=== PATIENT | female | born 1980 | race Caucasian/White ===

== ENCOUNTER → 2019-08-04 10:43 | Outpatient (CLI) | payer SELFPAY ==
[2019-08-04 13:35] LABS: Basophils # 0.1 K/mm3 (0-0.2); Basophils % 0.4 % (0.1-2.0); Eosinophils # 0.1 K/mm3 (0.0-0.4); Eosinophils % 0.6 % (0.1-12.0); Hematocrit 46.8 % (37.0-47.0); Hemoglobin 15.2 g/dL (12.2-16.2); Lymphocytes # 1.2 K/mm3 (0.7-4.5); Lymphocytes % 8.3 % (10-50); Mean Corpuscular HGB Conc 32.5 g/dL (31.8-35.4); Mean Corpuscular Hemoglobin 28.8 pg (27.0-31.2); Mean Corpuscular Volume 88.5 fl (81-99); Monocytes % 7.3 % (1.7-9.3); Neutrophils % 83.5 % (37.0-80.0); Platelet Count 237 K/mm3 (142-424); Red Blood Count 5.29 M/mm3 (4.20-5.40); Red Cell Distribution Width 12.8 % (11.5-17.5); White Blood Count 14.4 K/mm3 (4.8-10.8)
[2019-08-04 14:08] LABS: Alanine Aminotransferase 31 U/L (12-78); Albumin Level 3.1 gm/dL (3.4-5.0); Albumin/Globulin Ratio 0.9 (1.1-1.8); Alkaline Phosphatase 86 U/L (46-116); Anion Gap 15.6 mEq/L (5-15); Aspartate Amino Transferase 16 U/L (15-37); Bilirubin,Total 0.6 mg/dL (0.2-1.0); Blood Urea Nitrogen 9 mg/dL (7-18); Calcium 9.1 mg/dL (8.5-10.1); Carbon Dioxide 28 mmol/L (21.0-32.0); Chloride 98 mmol/L (98-107); Creatinine,Serum 0.83 mg/dL (0.55-1.02); Estimated Glomerular Filt Rate 76 ml/min (>60); GFR (African American) 92 ML/MIN (>60); Globulin 3.6 gm/dl (1.3-3.2); Glucose 97 mg/dL (74-106); Potassium 4.6 mmoL/L (3.5-5.1); Sodium 137 mmol/L (136-145); Total Protein,Serum 6.7 gm/dL (6.4-8.2)
== END ==
PROVIDERS: PCP Nurse Practitioner Family; Visit Provider Nurse Practitioner Family
DX: M54.41 Lumbago with sciatica, right side (principal); E86.0 Dehydration
CPT/HCPCS: 80053; 85025

== ENCOUNTER 2019-08-07 10:14 | Inpatient (IN) ==
[2019-08-07 12:46] LABS: Basophils % 0.1 % (0.1-2.0); Eosinophils % 0.1 % (0.1-12.0); Hematocrit 44.4 % (37.0-47.0); Hemoglobin 14.1 g/dL (12.2-16.2); Lymphocytes # 0.8 K/mm3 (0.7-4.5); Lymphocytes % 7.8 % (10-50); Mean Corpuscular HGB Conc 31.8 g/dL (31.8-35.4); Mean Corpuscular Volume 90.2 fl (81-99); Mean Platelet Volume 7.7 fl (7.4-10.4); Monocytes # 0.3 K/mm3 (0.1-1.0); Monocytes % 2.8 % (1.7-9.3); Neutrophils # 9.2 K/mm3 (1.8-7.8); Neutrophils % 89.2 % (37.0-80.0); Platelet Count 286 K/mm3 (142-424); Red Blood Count 4.92 M/mm3 (4.20-5.40); Red Cell Distribution Width 12.9 % (11.5-17.5); White Blood Count 10.3 K/mm3 (4.8-10.8)
--- NOTE | 2019-08-07 12:48 | Consult Report ---
*Admission Date: 08/07/19 *Reason for consult:: Perianal abscess *History of present illness: Patient is a 39-year-old female who had developed some perianal pain about 10 days ago. She was seen in her primary care provider's office and there was concern that this may be thrombosed hemorrhoid. She had presented back today for follow-up and was noted to have findings of perianal versus perirectal abscess which had developed some spontaneous drainage. This was quite impressive and she was admitted for inpatient management for pain control, surgical intervention, and intravenous antibiotics. Review of Systems - Review of Systems Review of systems:: pertinent systems reviewed and negative unless documented below [facility] History I have reviewed the patient's past medical history: Yes *Have you ever received a pneumonia vaccine?: No *Have you received a flu vaccine this season?: No Other Surgeries: Yes: Dilation and Curettage, Hysterectomy-Partial - *Social History Alcohol Intake: never *Occupational Status:: other *Travel in the last 8 weeks: None Family Hx:: No significant family history Meds Home Medications Medication Instructions Recorded Confirmed Type Oxycodone HCl/Acetaminophen 1 each PO Q6HP PRN 08/07/19 08/07/19 History [Endocet 5-325 Tablet] predniSONE [Prednisone 20mg 20 mg PO DAILY 08/07/19 08/07/19 History Tab] Allergies Allergy/AdvReac Type Severity Reaction Status Date / Time No Known Allergies Allergy Verified 08/07/19 12:30 Exam Vital signs and Labs for Last 24 Hours: Temp Pulse Resp BP Pulse Ox 98.6 F 78 18 130/89 97 08/07/19 11:25 08/07/19 11:25 08/07/19 11:25 08/07/19 11:25 08/07/19 11:25 I & O for Last 24 hours: Intake & Output 08/05/19 08/06/19 08/07/19 08/08/19 11:59 11:59 11:59 11:59 Weight 169 lb 9 oz - *Routine HEENT Exam Head: Present: normocephalic Eye: Present: EOMI, PERRL ENT: Present: mucous membranes moist - *Routine Neck Exam Present: supple. Absent: lymphadenopathy - *Routine Respiratory Exam Present: CTA bilaterally - *Routine Cardiovascular Exam Present: RRR - *Routine Abdominal Exam Present: soft, normoactive bowel sounds. Absent: tenderness - *Routine Rectal Exam Comments: In the left lateral perianal location there is an area of fluctuance with minimal induration. This is markedly tender. There is copious amount of thick pus exuding from the wound. It is quite tender. - *Routine Extremities Exam Absent: cyanosis, clubbing, edema - *Routine Skin Exam Present: warm. Absent: rash - *Routine Neurological Exam Present: alert, oriented X3 - Detailed Eye Exam Eyelids: Left normal inspection Assessment and Plan - Assessment and plan all Dx Assessment and Plan for all problems:: This appears to be likely a perianal versus perirectal abscess which has partially spontaneously drained. I do feel that to aid in patient's quickest recovery that more thorough incision and drainage with evacuation of abscess cavity and exam under anesthesia to assess for perirectal abscess would be warranted. Arrangements will be made for this to be done this afternoon.
[2019-08-07 12:53] LABS: INR 0.99 (0.9-1.1); Prothrombin Time 10.3 seconds (9.4-11.8)
[2019-08-07 13:22] LABS: Albumin Level 2.7 gm/dL (3.4-5.0); Albumin/Globulin Ratio 0.7 (1.1-1.8); Bilirubin,Total 0.2 mg/dL (0.2-1.0); Calcium 8.5 mg/dL (8.5-10.1); Globulin 3.7 gm/dl (1.3-3.2); Total Protein,Serum 6.4 gm/dL (6.4-8.2)
--- NOTE | 2019-08-07 14:19 | History & Physical Report ---
*Admission Date: 08/07/19 *Chief complaint: Abscess at anus *History of present illness: Ms. Gallardo is a 39-year-old [employer] woman who he presented to the office today with continued pain in her perianal region. She states the pain began approximately 7 to 10 days ago and she sought initial care at our office where she was diagnosed with a thrombosed hemorrhoid. Treatment topical steroids provided no benefit and she followed up later in the week with continued pain that radiated into her back and legs. At that time labs were obtained showing a leukocytosis with concern for suspected UTI, antibiotics were prescribed but never initiated. She re-presented to clinic today with continued pain and now complaining of lisa purulent/bloody drainage when she tries to have a bowel movement. Complains she has not had a bowel movement over a week. Denies lisa fever but has felt warm. Has felt nauseous on occasion but no emesis. Exam in clinic showed concern for perianal abscess that was draining lisa mucoid pus. Directly admitted from the office for further management including surgical consult and IV antibiotic initiation. [facility] History I have reviewed the patient's past medical history: Yes Medical History: Denies:: Congenital Heart Disease, Diabetes Mellitus Type 1, Diabetes Mellitus Type 2, Hypertension *Have you ever received a pneumonia vaccine?: No *Have you received a flu vaccine this season?: No Other Surgeries: Yes: Dilation and Curettage, Hysterectomy-Partial - *Social History Alcohol Intake: never *Occupational Status:: other *Travel in the last 8 weeks: None Family Hx:: No significant family history Review of Systems - Review of Systems Review of systems:: pertinent systems reviewed and negative unless documented below Meds Home Medications Medication Instructions Recorded Confirmed Type Oxycodone HCl/Acetaminophen 1 each PO Q6HP PRN 08/07/19 08/07/19 History [Endocet 5-325 Tablet] predniSONE [Prednisone 20mg 20 mg PO DAILY 08/07/19 08/07/19 History Tab] Allergies Allergy/AdvReac Type Severity Reaction Status Date / Time No Known Allergies Allergy Verified 08/07/19 12:30 Exam Vital signs and Labs for Last 24 Hours: Temp Pulse Resp BP Pulse Ox 98.6 F 78 18 130/89 97 08/07/19 11:25 08/07/19 11:25 08/07/19 11:25 08/07/19 11:25 08/07/19 11:25 Laboratory Results - last 24 hr 08/07/19 12:30: WBC 10.3, RBC 4.92, Hgb 14.1, Hct 44.4, MCV 90.2, MCH 28.7, MCHC 31.8, RDW 12.9, Plt Count 286, MPV 7.7, Neut % (Auto) 89.2 H, Lymph % (Auto) 7.8 L, [place] % (Auto) 2.8, Eos % (Auto) 0.1, Baso % (Auto) 0.1, Neut # (Auto) 9.2 H, Lymph # (Auto) 0.8, [place] # (Auto) 0.3, Eos # (Auto) 0.0, Baso # (Auto) 0.0 08/07/19 12:30: Sodium 142, Potassium 4.0, Chloride 103, Carbon Dioxide 29, Anion Gap 14.0, BUN 14, Creatinine 0.80, Estimated Creat Clear 112, Estimated GFR 79, Est GFR ( Amer) 96, Glucose 119 H, Calcium 8.5, Total Bilirubin 0.2, AST 50 H, ALT 122 H, Alkaline Phosphatase 65, Total Protein 6.4, Albumin 2.7 L, Globulin 3.7 H, Albumin/Globulin Ratio 0.7 L 08/07/19 12:30: PT 10.3, INR 0.99 I & O for Last 24 hours: Intake & Output 08/04/19 08/05/19 08/06/19 08/07/19 23:59 23:59 23:59 23:59 Weight 76.912 kg - Constitutional no acute distress - *Routine HEENT Exam Head: Present: normocephalic Eye: Present: EOMI, PERRL ENT: Present: mucous membranes moist - *Routine Neck Exam Present: supple. Absent: lymphadenopathy - *Routine Respiratory Exam Present: CTA bilaterally - *Routine Cardiovascular Exam Present: RRR - *Routine Abdominal Exam Present: soft, normoactive bowel sounds, tenderness (diffuse tenderness, worse in LLQ and suprapubic) - *Routine Rectal Exam Comments: Nickel sized firm abscess with hole in the middle draining thick mucoid purulent pus located at the area o'clock position with the patient supine. Tender to palpation. - *Routine Extremities Exam Absent: cyanosis, clubbing, edema - *Routine Skin Exam Present: warm. Absent: rash - *Routine Neurological Exam Present: alert, oriented X3 Assessment and Plan (1) Perianal abscess Current visit: Yes Status: Acute Category: Medical Code(s): K61.0 - Anal abscess - Assessment and plan all Dx Assessment and Plan for all problems:: Otherwise well 39-year-old female with perianal abscess on exam. Surgery consulted, status post incision and drainage. Monitor for response to IV antibiotics. Appears hemodynamically stable at this time. Continue current antibiotics for at least 24 to 48 hours. Surgery to reevaluate tomorrow. Liquid diet at this time. Pain control with opiates. Continues to require inpatient management.
--- NOTE | 2019-08-07 14:58 | Pharmacy Consult Notes ---
- Pharmacy Consult Date: 08/07/19 Time: 14:56 Referring provider: DR. GTZ Reason for Consult:: VANCOMYCIN DOSING Allergies and ADEs:: Allergies Allergy/AdvReac Type Severity Reaction Status Date / Time No Known Allergies Allergy Verified 08/07/19 12:30 Home Medications:: Home Medications Medication Instructions Recorded Confirmed Type Oxycodone HCl/Acetaminophen 1 each PO Q6HP PRN 08/07/19 08/07/19 History [Endocet 5-325 Tablet] predniSONE [Prednisone 20mg 20 mg PO DAILY 08/07/19 08/07/19 History Tab] Height: 1.63 m Weight: 76.912 kg Laboratory Results:: Laboratory Results - last 24 hr 08/07/19 12:30: WBC 10.3, RBC 4.92, Hgb 14.1, Hct 44.4, MCV 90.2, MCH 28.7, MCHC 31.8, RDW 12.9, Plt Count 286, MPV 7.7, Neut % (Auto) 89.2 H, Lymph % (Auto) 7.8 L, [place] % (Auto) 2.8, Eos % (Auto) 0.1, Baso % (Auto) 0.1, Neut # (Auto) 9.2 H, Lymph # (Auto) 0.8, [place] # (Auto) 0.3, Eos # (Auto) 0.0, Baso # (Auto) 0.0 08/07/19 12:30: Sodium 142, Potassium 4.0, Chloride 103, Carbon Dioxide 29, Anion Gap 14.0, BUN 14, Creatinine 0.80, Estimated Creat Clear 112, Estimated GFR 79, Est GFR ( Amer) 96, Glucose 119 H, Calcium 8.5, Total Bilirubin 0.2, AST 50 H, ALT 122 H, Alkaline Phosphatase 65, Total Protein 6.4, Albumin 2.7 L, Globulin 3.7 H, Albumin/Globulin Ratio 0.7 L 08/07/19 12:30: PT 10.3, INR 0.99 Medical History: Denies:: Congenital Heart Disease, Diabetes Mellitus Type 1, Diabetes Mellitus Type 2, Hypertension Assessment and Plan (1) Perianal abscess Current visit: Yes Status: Acute Category: Medical Code(s): K61.0 - Anal abscess - Assessment and plan all Dx Assessment and Plan for all problems:: BASED ON PATIENT'S FACTORS, RECOMMEND PATIENT STARTING WITH VANCOMYCIN 1250 MG Q12H AT THIS TIME.
--- NOTE | 2019-08-07 15:03 | Operative Note ---
Date of procedure: 08/07/19 Pre-op Diagnosis:: Perianal abscess Post-op Diagnosis:: Perirectal abscess Procedure performed:: Incision and drainage of perirectal abscess Surgeon:: Alo Kruger MD INDUSTRIAL TECH INSTRUCTOR:: Julián Villalpando Anesthesia: GETA Estimated blood loss (mL): 15 Clinical Note:: Ms. Gallardo is a 39-year-old [facility] woman who has had pain beginning approximately 7 to 10 days ago. Initially she was diagnosed with a thrombosed hemorrhoid. Treatment topical steroids provided no benefit and she followed up later in her primary care provider's office with continued pain that radiated into her back and legs. At that time labs were obtained showing a leukocytosis with concern for suspected UTI, antibiotics were prescribed but never initiated. She re- presented today to primary care provider's office with continued pain and now complaining of lisa purulent/bloody drainage when she tries to have a bowel movement. Exam in clinic showed concern for perianal abscess that was draining lisa mucoid pus. She was directly admitted for further management including surgical consult and IV antibiotic initiation. Patient was found to have a partially draining perianal versus perirectal abscess on examination. Plan was made for definitive incision and drainage and evacuation of abscess cavity under anesthesia. Operative findings:: Patient had a perirectal abscess. No evidence of any deep pelvic tracking or fistula formation as of yet Operative note:: Patient was taken the operating room. She was placed in a supine position. General anesthesia was induced. Perianal region was prepped and draped in the standard surgical fashion. In the left lateral location she had an area that was draining thick mucoid pus. This was probed with a probe. There was some tracking to a separate adjacent spontaneous opening. Limited perianal incision was made with electrocautery connecting the areas which were spontaneously draining. There was thick mucoid pus evacuated from the wound. This was sent for culture. The wound was probed and any loculations were incised. [place] anoscope was inserted while inserting the probe in the wound and there was no evidence of any fistula as of yet. The wound was thoroughly irrigated. Local anesthetic was infiltrated into the abscess cavity. The wound was packed with 1/2 inch plain packing gauze. Clean dry sterile dressing was applied. Condition: stable Disposition: PACU Specimens:: Cultures sent Complications:: None immediately apparent
--- NOTE | 2019-08-07 15:11 | Progress Note ---
[facility] Anesthesia Checklist - Structural Data Admitted From: Inpatient Planned Operative Procedure/s: i/d perirectal abcess Consent for Planned Operative Procedure(s) Verified: Yes - Airway Assessment C-Spine Mobility Assessed: Yes TMJ Mobility Assessed: Yes Dentition: Good Dentition - Neurological Assessment Level of Consciousness: Awake - Anesthesia Plan Anesthesia Risk discussed: Yes Anesthesia Plan: Verified ASA Class: II Anesthesia Type: General [facility] History I have reviewed the patient's past medical history: Yes Medical History: Denies:: Congenital Heart Disease, Diabetes Mellitus Type 1, Diabetes Mellitus Type 2, Hypertension *Have you ever received a pneumonia vaccine?: No *Have you received a flu vaccine this season?: No Anesthesia experience/problems:: none Other Surgeries: Yes: Dilation and Curettage, Hysterectomy-Partial - *Social History Alcohol Intake: never Substance Use Type: denies use *Occupational Status:: other *Travel in the last 8 weeks: None Family Hx:: No significant family history
--- NOTE | 2019-08-07 15:12 | Progress Note ---
[facility] Anesthesia Record Part I Intake, IV Amount: 500 Estimated blood loss (mL): 0 Urine output (mL): 0 Blood Pressure: 136/80 SaO2: 98 Pulse Rate: 104 Respiratory Rate: 12 Temperature: 98.3 F Patient is:: Awake, Stable Stable to PACU at:: 15:05
--- NOTE | 2019-08-07 15:12 | Progress Note ---
[facility] Anesthesia Record Part II Discharge Time: 15:35 Destination: floor PACU nurse assessment reviewed?: Yes Patient Condition:: Good Anesthesia Complications:: None Swallowing reflex intact?: Yes Cyanosis?: No
[2019-08-07 16:19] LABS: Lymphocytes % 9 % (10-50); Monocytes % 3 % (2-9); Neutrophils % 88 % (42-76); Total Cells Counted 100
--- NOTE | 2019-08-07 16:22 | Pharmacy Consult Notes ---
[facility] Pharmacy VTE Monitoring - Patient Demographics Admission date: 08/07/19 Report Date: 08/07/19 Time: 16:22 Allergies/Adverse Reactions: Patient Allergies No Known Allergies Allergy (Verified 08/07/19 12:30) Height: 1.63 m Weight: 76.912 kg Patient Problems: Current Active Problems Perianal abscess (Acute) - VTE Risk Labs: VTE Related Lab Results Hgb 14.1 g/dL (12.2-16.2) 08/07/19 12:30 Hct 44.4 % (37.0-47.0) 08/07/19 12:30 Plt Count 286 K/mm3 (142-424) 08/07/19 12:30 PT 10.3 seconds (9.4-11.8) 08/07/19 12:30 INR 0.99 (0.9-1.1) 08/07/19 12:30 BUN 14 mg/dL (7-18) 08/07/19 12:30 Creatinine 0.80 mg/dL (0.55-1.02) 08/07/19 12:30 Estimated Creat Clear 112 mL/min (50-200) 08/07/19 12:30 Clinical Trial Participant: No - Prophylaxis VTE Prophylaxis Ordered?: Yes Types of VTE Prophylaxis: TEDS Knee High
[2019-08-07 16:23] LABS: RBC Morphology Normal
[2019-08-08 06:30] LABS: Basophils % 0.2 % (0.1-2.0); Eosinophils % 0.2 % (0.1-12.0); Hematocrit 39.4 % (37.0-47.0); Hemoglobin 12.9 g/dL (12.2-16.2); Lymphocytes # 1.2 K/mm3 (0.7-4.5); Mean Corpuscular HGB Conc 32.8 g/dL (31.8-35.4); Mean Corpuscular Volume 87.8 fl (81-99); Mean Platelet Volume 7.6 fl (7.4-10.4); Monocytes # 0.9 K/mm3 (0.1-1.0); Neutrophils # 10.3 K/mm3 (1.8-7.8); Neutrophils % 82.7 % (37.0-80.0); Platelet Count 266 K/mm3 (142-424); Red Blood Count 4.49 M/mm3 (4.20-5.40); Red Cell Distribution Width 12.6 % (11.5-17.5); White Blood Count 12.5 K/mm3 (4.8-10.8)
[2019-08-08 06:37] LABS: Anion Gap 8.9 mEq/L (5-15)
--- NOTE | 2019-08-08 07:27 | Progress Note ---
Subjective Patient reports: no new complaints Narrative: Patient had overlying dressing falloff when using the bathroom. Exam Vital signs and Labs for Last 24 Hours: Temp Pulse Resp BP Pulse Ox 97.9 F 71 17 128/75 92 L 08/08/19 04:00 08/08/19 04:00 08/08/19 04:00 08/08/19 04:00 08/08/19 04:00 Laboratory Results - last 24 hr 08/07/19 12:30: WBC 10.3, RBC 4.92, Hgb 14.1, Hct 44.4, MCV 90.2, MCH 28.7, MCHC 31.8, RDW 12.9, Plt Count 286, MPV 7.7, Neut % (Auto) 89.2 H, Lymph % (Auto) 7.8 L, [place] % (Auto) 2.8, Eos % (Auto) 0.1, Baso % (Auto) 0.1, Neut # (Auto) 9.2 H, Lymph # (Auto) 0.8, [place] # (Auto) 0.3, Eos # (Auto) 0.0, Baso # (Auto) 0.0, Total Counted 100, Neutrophils % (Manual) 88 H, Lymphocytes % (Manual) 9 L, Monocytes % (Manual) 3, Platelet Estimate Normal, RBC Morphology Normal 08/07/19 12:30: Sodium 142, Potassium 4.0, Chloride 103, Carbon Dioxide 29, Anion Gap 14.0, BUN 14, Creatinine 0.80, Estimated Creat Clear 112, Estimated GFR 79, Est GFR ( Amer) 96, Glucose 119 H, Calcium 8.5, Total Bilirubin 0.2, AST 50 H, ALT 122 H, Alkaline Phosphatase 65, Total Protein 6.4, Albumin 2.7 L, Globulin 3.7 H, Albumin/Globulin Ratio 0.7 L 08/07/19 12:30: PT 10.3, INR 0.99 08/08/19 06:16: WBC 12.5 H, RBC 4.49, Hgb 12.9, Hct 39.4, MCV 87.8, MCH 28.8, MCHC 32.8, RDW 12.6, Plt Count 266, MPV 7.6, Neut % (Auto) 82.7 H, Lymph % (Auto) 10.0, [place] % (Auto) 7.0, Eos % (Auto) 0.2, Baso % (Auto) 0.2, Neut # (Auto) 10.3 H, Lymph # (Auto) 1.2, [place] # (Auto) 0.9, Eos # (Auto) 0.0, Baso # (Auto) 0.0 08/08/19 06:16: Sodium 141, Potassium 3.9, Chloride 106, Carbon Dioxide 30, Anion Gap 8.9, BUN 9 D, Creatinine 0.73, Estimated Creat Clear 123, Estimated GFR 88, Est GFR ( Amer) 106, Glucose 116 H, Calcium 8.0 L I & O for Last 24 hours: Intake & Output 08/05/19 08/06/19 08/07/19 08/08/19 11:59 11:59 11:59 11:59 Intake Total 4 / 2134 Balance 4 / 2134 Weight 169 lb 9 oz 169 lb 9 oz Microbiology Reports for the Last 24 Hours: Microbiology 08/07/19 14:45 Anus Gram Stain - Final - *Routine Rectal Exam Comments: Wound is clean. There is some thin brownish discharge. Progress Note: A&P (1) Perianal abscess Status: Acute Current Visit: Yes Assessment and Plan for All Diagnoses:: Packing removed. Patient did experience some notable pain and discomfort with removing the packing. Plan to make arrangements for outpatient dressing changes. Cultures are pending. May be amenable to outpatient Augmentin.
--- NOTE | 2019-08-08 08:15 | Progress Note ---
Internal Medicine - PN: Subj *Date: 08/08/19 *Time: 08:10 Interval history: Patient did well overnight. Tolerated procedure yesterday with I&D. Remains afebrile. White count is up a little this morning however given manipulation of the wound, not surprised by this. Hemodynamically stable. Tolerating p.o. fluids. Still has not had a bowel movement. Denies any shortness of breath, chest pain, nausea, vomiting. Does have pain in the perianal region as expected. Tender on dressing change this morning. Exam Vital signs and Labs for Last 24 Hours: Temp Pulse Resp BP Pulse Ox 98.4 F 85 20 111/71 96 08/08/19 07:39 08/08/19 07:39 08/08/19 07:39 08/08/19 07:39 08/08/19 07:39 Laboratory Results - last 24 hr 08/07/19 12:30: WBC 10.3, RBC 4.92, Hgb 14.1, Hct 44.4, MCV 90.2, MCH 28.7, MCHC 31.8, RDW 12.9, Plt Count 286, MPV 7.7, Neut % (Auto) 89.2 H, Lymph % (Auto) 7.8 L, [place] % (Auto) 2.8, Eos % (Auto) 0.1, Baso % (Auto) 0.1, Neut # (Auto) 9.2 H, Lymph # (Auto) 0.8, [place] # (Auto) 0.3, Eos # (Auto) 0.0, Baso # (Auto) 0.0, Total Counted 100, Neutrophils % (Manual) 88 H, Lymphocytes % (Manual) 9 L, Monocytes % (Manual) 3, Platelet Estimate Normal, RBC Morphology Normal 08/07/19 12:30: Sodium 142, Potassium 4.0, Chloride 103, Carbon Dioxide 29, Anion Gap 14.0, BUN 14, Creatinine 0.80, Estimated Creat Clear 112, Estimated GFR 79, Est GFR ( Amer) 96, Glucose 119 H, Calcium 8.5, Total Bilirubin 0.2, AST 50 H, ALT 122 H, Alkaline Phosphatase 65, Total Protein 6.4, Albumin 2.7 L, Globulin 3.7 H, Albumin/Globulin Ratio 0.7 L 08/07/19 12:30: PT 10.3, INR 0.99 08/08/19 06:16: WBC 12.5 H, RBC 4.49, Hgb 12.9, Hct 39.4, MCV 87.8, MCH 28.8, MCHC 32.8, RDW 12.6, Plt Count 266, MPV 7.6, Neut % (Auto) 82.7 H, Lymph % (Auto) 10.0, [place] % (Auto) 7.0, Eos % (Auto) 0.2, Baso % (Auto) 0.2, Neut # (Auto) 10.3 H, Lymph # (Auto) 1.2, [place] # (Auto) 0.9, Eos # (Auto) 0.0, Baso # (Auto) 0.0 08/08/19 06:16: Sodium 141, Potassium 3.9, Chloride 106, Carbon Dioxide 30, Anion Gap 8.9, BUN 9 D, Creatinine 0.73, Estimated Creat Clear 123, Estimated GFR 88, Est GFR ( Amer) 106, Glucose 116 H, Calcium 8.0 L I & O for Last 24 hours: Intake & Output 08/05/19 08/06/19 08/07/19 08/08/19 23:59 23:59 23:59 23:59 Intake Total 840 / 1080 1414 / 1414 Balance 840 / 1080 1414 / 1414 Weight 76.912 kg 76.912 kg Microbiology Reports for the Last 24 Hours: Microbiology 08/07/19 14:45 Anus Gram Stain - Final Narrative: - Constitutional no acute distress - *Routine HEENT Exam Head: Present: normocephalic Eye: Present: EOMI, PERRL ENT: Present: mucous membranes moist - *Routine Respiratory Exam Present: CTA bilaterally - *Routine Cardiovascular Exam Present: RRR, no murmur - *Routine Abdominal Exam Present: soft, normoactive bowel sounds, interval improvement in tenderness - *Routine Rectal Exam Comments: Incision at 9 o'clock position with no purulent drainage. Beefy red base. Improved induration. Quite tender to palpation however. Some serosanguineous drainage on dressing. - *Routine Extremities Exam Absent: cyanosis, clubbing, edema - *Routine Skin Exam Present: warm. Absent: rash - *Routine Neurological Exam Present: alert, oriented X3 Assessment and Plan (1) Perianal abscess Current visit: Yes Status: Acute Category: Medical Code(s): K61.0 - Anal abscess - Assessment and plan all Dx Assessment and Plan for all problems:: 39-year-old [employer] female with perianal abscess status post I&D. Continue broad- spectrum IV antibiotics today. Will educate family on dressing changes. Plan to establish pain regimen for dressing changes. Transition to Augmentin orally at time of discharge for total of 14 days of antibiotics. Given the patient has not had a bowel movement in a week, will become more aggressive about bowel regimen today in hopes that we can have a bowel movement and assess patient's response prior to discharge home. Plan to keep 1 more night for continued education and monitoring of lesion. Advance diet today.
--- NOTE | 2019-08-09 07:55 | Discharge Summary ---
General - General Admission date:: 08/07/19 Discharge date: 08/09/19 HPI HPI: Ms. Gallardo is a 39-year-old [place] woman who he presented to the office today with continued pain in her perianal region. She states the pain began approximately 7 to 10 days ago and she sought initial care at our office where she was diagnosed with a thrombosed hemorrhoid. Treatment topical steroids provided no benefit and she followed up later in the week with continued pain that radiated into her back and legs. At that time labs were obtained showing a leukocytosis with concern for suspected UTI, antibiotics were prescribed but never initiated. She re-presented to clinic today with continued pain and now complaining of lisa purulent/bloody drainage when she tries to have a bowel movement. Complains she has not had a bowel movement over a week. Denies lisa fever but has felt warm. Has felt nauseous on occasion but no emesis. Exam in clinic showed concern for perianal abscess that was draining lisa mucoid pus. Directly admitted from the office for further management including surgical consult and IV antibiotic initiation. Hospital Course Hospital Course: Patient was admitted, placed on IV antibiotics. Surgery consultation was performed and she was taken to the OR and debridement of the abscess occurred. Good results. Patient tolerated the procedure well. Wound base looked great. Please see surgical notes for details. This morning patient is afebrile. She will be discharged home on Augmentin, pain medication. Dressing changes twice daily will be performed per her sister. Follow-up per surgery clinic next week. Objective Vital signs: Temp Pulse Resp BP Pulse Ox 98.2 F 82 17 108/72 L 99 08/09/19 04:00 08/09/19 04:00 08/09/19 04:00 08/09/19 04:00 08/09/19 04:00 Narrative: Patient is pleasant. Alert. Oriented x3. Heart rate regular, abdomen soft and nontender. Lungs are clear. Neurologic exam intact. Wound exam per surgery notes. Results Labs on day of discharge: Labs from last 24 hours 08/08/19 20:28 Vancomycin Trough 8.6 L Preliminary micro results at discharge 08/07/19 14:45 Abscess Culture - Preliminary Anus DS: Diagnosis - Discharge Diagnosis (1) Perianal abscess Status: Acute Discharge Plan - Patient Discharge Instructions ACTIVITY: Limited activity DIET: continue same diet - Follow up Plan Follow up with: Alo Kruger MD [Staff Physician] - 08/14/19 Disposition: Home, Self-Fdc Medications: Home Medications Medication Instructions Recorded Confirmed Type Tramadol HCl [Tramadol 50mg 50 - 100 mg PO TIDP PRN 08/08/19 08/08/19 History Tab] Amoxicillin/Potassium Clav 1 tab PO Q12H #20 tab 08/09/19 Rx [Augmentin 875-125 Tablet] Oxycodone HCl/Acetaminophen 1 - 2 tab PO BID PRN #20 tab 08/09/19 Rx [Percocet 5/325mg tablet] Sennosides/Docusate Sodium 1 each PO BID #40 tab 08/09/19 Rx [Senokot-S Tablet] Prescriptions/Medication Reconciliation: New Sennosides/Docusate Sodium [Senokot-S Tablet] 1 each PO BID #40 tab Oxycodone HCl/Acetaminophen [Percocet 5/325mg tablet] 1 - 2 tab PO BID PRN #20 tab PRN Reason: Moderate To Severe Pain Amoxicillin/Potassium Clav [Augmentin 875-125 Tablet] 1 tab PO Q12H #20 tab Discontinued Tramadol HCl [Tramadol 50mg Tab] 50 - 100 mg PO TIDP PRN PRN Reason: PAIN - Problem Reconciliation Problems Reviewed?: Yes
--- NOTE | 2019-08-09 08:38 | Pharmacy Consult Notes ---
- Pharmacy Consult Date: 08/09/19 Time: 08:36 Referring provider: DR. GTZ Reason for Consult:: VANCOMYCIN TROUGH LEVEL Allergies and ADEs:: Allergies Allergy/AdvReac Type Severity Reaction Status Date / Time No Known Allergies Allergy Verified 08/07/19 12:30 Home Medications:: Home Medications Medication Instructions Recorded Confirmed Type Amoxicillin/Potassium Clav 1 tab PO Q12H #20 tab 08/09/19 Rx [Augmentin 875-125 Tablet] Oxycodone HCl/Acetaminophen 1 - 2 tab PO BID PRN #20 tab 08/09/19 Rx [Percocet 5/325mg tablet] Sennosides/Docusate Sodium 1 each PO BID #40 tab 08/09/19 Rx [Senokot-S Tablet] Height: 1.63 m Weight: 76.912 kg Laboratory Results:: Laboratory Results - last 24 hr 08/08/19 20:28: Vancomycin Trough 8.6 L Medical History: Denies:: Congenital Heart Disease, Diabetes Mellitus Type 1, Diabetes Mellitus Type 2, Hypertension Assessment and Plan (1) Perianal abscess Current visit: Yes Status: Acute Category: Medical Code(s): K61.0 - Anal abscess - Assessment and plan all Dx Assessment and Plan for all problems:: BASED ON PATIENT FACTORS AND VANCOMYCIN TROUGH LEVEL, RECOMMEND INCREASING DOSE TO VANCOMYCIN 1500 MG IV Q12H STARTING LAST NIGHT. PATIENT WILL BE DISCHARGED HOME ON AUGMENTIN THIS MORNING.
== END 2019-08-09 12:48 | disposition home or self-care (01) | DRG 395 ==
LOC: 2ND 11:08
PROVIDERS: ADMIT Internal Medicine Adolescent Medicine; ATTEND Internal Medicine Adolescent Medicine
CPT/HCPCS: 36415; 74021; 74022; 80048; 80053; 80202; 85007; 85025; 85610; 87040; 87070; 87075; 87077; 87186; 87205; J2405; J3370